=== PATIENT | male | born 1950 | race Asian ===

== ENCOUNTER 2017-02-24 13:24 | Inpatient (IN) | payer OTHER ==
[~2017-02-24] VITALS: Ht 154.9 cm; Wt 63.5 kg
[2017-02-24 14:18] LABS: BASOPHIL % 0.6 % (0-2); PLATELET COUNT 220 x10^3mcL (130-400); RED CELL DISTRIBUTION WIDTH 12.8 % (11.5-14.5)
[2017-02-24 14:28] LABS: CALCIUM 8.3 mg/dL (8.5-10.1); CARBON DIOXIDE 24.4 mmol/L (21-32); CHLORIDE SERUM 104 mmol/L (98-107); CREATININE SERUM 0.8 mg/dL (0.7-1.3); GFR1 > 60 mL/min; GLUCOSE SERUM 126 mg/dL (74-106); POTASSIUM SERUM 3.7 mmol/L (3.5-5.1); SODIUM SERUM 139 mmol/L (136-145)
[2017-02-24 14:33] LABS: ALBUMIN 3.6 g/dL (3.4-5.0); ALKALINE PHOSPHATASE 78 U/L (46-116); ALT/SGPT 28 U/L (16-63); AST/SGOT 25 U/L (15-37); BILIRUBIN TOTAL 0.79 mg/dL (0.20-1.00); CHOLESTEROL 166 mg/dL (<200); HDL CHOLESTEROL 36 mg/dL (40-60); MAGNESIUM 1.9 mg/dL (1.8-2.4); TOTAL PROTEIN, SERUM 7.5 g/dL (6.4-8.2)
[2017-02-24 17:31] VITALS: BP 138/74
[2017-02-24 18:05] LABS: microscopic required? NO
[2017-02-24 18:21] LABS: UA SPECIFIC GRAVITY 1.015 (1.005-1.035); urine erythrocyte NEGATIVE (NEGATIVE)
[2017-02-24 18:34] LABS: AMYLASE 53 U/L (25-115); LIPASE 162 IU/L (73-393); T3 TOTAL 1.32 ng/mL
[2017-02-24 18:47] LABS: FREE T4 0.99 ng/dL (0.76-1.46); FREE THYROXINE INDEX 2.7 ug/dL (1.4-4.5); T4(THYROXINE) 7.9 ug/dL (4.7-13.3)
[2017-02-24 21:20] LABS: CHOLESTEROL/HDL RATIO 4.1
[2017-02-24 21:56] VITALS: BP 111/65
[2017-02-24] MEDS ORDERED: GEMFIBROZIL600 MG PO (23:38)
[2017-02-25 06:13] VITALS: BP 107/61
[2017-02-25 08:30] VITALS: BP 141/84
[2017-02-25 10:00] VITALS: BP 110/66
[2017-02-25 10:09] VITALS: Ht 154.9 cm; Wt 63.5 kg
[2017-02-25 13:56] VITALS: BP 110/66
[2017-02-25 14:00] VITALS: BP 114/65
== END 2017-02-25 16:30 | disposition home or self-care (01) | DRG 73 ==
LOC: ED 13:24 → DU 16:23
PROVIDERS: Emergency Medicine; ADMIT Family Medicine
DX: G90.9 Disorder of the autonomic nervous system, unspecified (principal); I50.43 Acute on chronic combined systolic (congestive) and diastolic (congestive) heart failure; E78.2 Mixed hyperlipidemia; E83.51 Hypocalcemia; R11.2 Nausea with vomiting, unspecified
CPT/HCPCS: 82962; 83880; 84439; J2550; J7030; J8597; Q0092

== ENCOUNTER 2019-09-21 09:19 | Emergency (ER) | payer OTHER ==
[~2019-09-21] VITALS: Ht 162.6 cm; Wt 57.6 kg
[~2019-09-21 09:19] MED LIST: GEMFIBROZIL600 MG PO
[2019-09-21 14:40] VITALS: BP 135/71
== END 2019-09-21 14:40 | disposition home or self-care (01) ==
LOC: ED 09:19
DX: S10.11XA Abrasion of throat, initial encounter (principal); E78.00 Pure hypercholesterolemia, unspecified; X58.XXXA Exposure to other specified factors, initial encounter; Y93.89 Activity, other specified; Y92.89 Other specified places as the place of occurrence of the external cause; Y99.8 Other external cause status